=== PATIENT | male | born 1965 | race Caucasian/White ===

== ENCOUNTER 2021-02-18 14:24 | Outpatient (CLI) | payer SELFPAY ==
[2021-02-18 14:49] LABS: Mean Corpuscular HGB CONC 31.8 g/dL (32.0-36.0); Mean Corpuscular Hemoglobin 33.8 pg (27.0-33.0); Mean Corpuscular Volume 106.3 fl (81.2-95.1); Mean Platelet Volume 10.5 fl (7.4-10.4); Platelet Count 195 10x3/uL (150-450); RBC Distribution Width 13.1 % (11.5-14.5); Red Blood Cell (RBC) Count 4.14 10x6/uL (4.32-5.72); White Blood Cell (WBC) Count 9.9 10x3/uL (3.5-10.5)
[2021-02-18 14:57] LABS: Bilirubin Neg (Negative); Blood, Urine Negative (Negative); Clarity Cloudy (Clear); Glucose, Urine (Dipstick) Normal (Negative); Ketone, Urine 15 mg/dL (Negative); Leukocyte 25 (Negative); Nitrite Negative (Negative); Protein, Urine (Dipstick) 30 mg/dl (Neg-Trace); Specific Gravity, Urine 1.015 (1.002-1.036); pH, Urine 6.5 (5.0-9.0)
[2021-02-18 15:11] LABS: Anion Gap 16 mmol/L (10-20); BUN (Urea Nitrogen) 8 mg/dL (8.4-25.7); Calc. Creatinine Clearance 0 mL/min (70-130); Calcium 10.1 mg/dL (7.8-10.44); Carbon Dioxide 25 mmol/L (22-29); Chloride 103 mmol/L (98-107); Glucose 107 mg/dL (70-105); Potassium 5.3 mmol/L (3.5-5.1); Sodium 139 mmol/L (136-145)
[2021-02-18 15:27] LABS: Bacteria/HPF None Seen HPF (None Seen); RBC/HPF 0-3 HPF (0-3); Squamous Epithelial 0-3 HPF (0-3); WBC/HPF 0-3 HPF (0-3)
[2021-02-18 15:28] LABS: Mucous/LPF 2+ LPF (<2+)
[2021-02-19 01:56] LABS: SARS-CoV-2 PCR by NAA Not Detected (NotDetected)
== END 2021-02-18 14:25 | disposition home or self-care (01) ==
LOC: LABBT 14:24
PROVIDERS: ATTEND Orthopaedic Surgery
DX: Z01.818 Encounter for other preprocedural examination (principal); Z20.822 Contact with and (suspected) exposure to COVID-19; S46.812A Strain of other muscles, fascia and tendons at shoulder and upper arm level, left arm, initial encounter; M75.22 Bicipital tendinitis, left shoulder
CPT/HCPCS: 80048; 81001; 85027; 87635; 93005; 93010; U0003; U0005

== ENCOUNTER 2021-02-23 06:16 | Day surgery (SDC) | payer OTHER ==
[2021-02-22 11:30] VITALS: BMI 27.4
[2021-02-23] MEDS ORDERED: Midazolam HCl 2 mg/2 ml Vial ONE ×2 (06:38→06:40)
[2021-02-23] MEDS ORDERED: Fentanyl 100 MCG/2 ML VIAL ONE ×2 (06:38→06:40)
[2021-02-23] MEDS ORDERED: Sodium Chloride 0.9% 10 ML ONE (06:41)
[2021-02-23] MEDS ORDERED: Vancomycin 1 GM/200 ML BAG ONE (06:50)
[2021-02-23] MEDS ORDERED: PHENYLEPHRINE-NS 100 MCG/ML 10 ML SYRINGE ONE (07:18)
[2021-02-23] MEDS ORDERED: Lidocaine 1% (PF) 30 ML VIAL ONE (07:18)
[2021-02-23] MEDS ORDERED: Rocuronium Bromide 10 MG/ML (10ML VIAL) ONE (07:18)
[2021-02-23] MEDS ORDERED: PROPOFOL 200 MG/20 ML VIAL ONE (07:18)
[2021-02-23] MEDS ORDERED: Ropivacaine 0.5% HCl/PF (150 MG/30 ML VIAL) ONE (07:18)
[2021-02-23] MEDS ORDERED: Dexamethasone 20 MG/5 ML VIAL ONE (07:18)
[2021-02-23] MEDS ORDERED: Ondansetron PF 4 MG/2 ML Vial ONE (07:18)
[2021-02-23] MEDS ORDERED: Glycopyrrolate 0.2 MG/ML 5 ML SYRINGE ONE (07:18)
[2021-02-23] MEDS ORDERED: Lidocaine 1% PF 5 ML VIAL ONE (07:18)
[2021-02-23] MEDS ORDERED: Ondansetron PF 4 MG/2 ML Vial IVP PRN (08:30)
[2021-02-23] MEDS ORDERED: Promethazine HCl 25 MG/ML VIAL IM PRN (08:30)
[2021-02-23] MEDS ORDERED: Zolpidem Tartrate 5 MG TAB PO PRN (08:30)
[2021-02-23] MEDS ORDERED: Ropivacaine 0.2% 550 ML 550 ML NERVE BLCK SCH (08:30)
[2021-02-23] MEDS ORDERED: Meperidine HCl/PF 25 MG/ML VIAL ONE (10:05)
[2021-02-23] MEDS ORDERED: HYDROcodone/Acetaminophen 5/325 mg Tablet ONE (12:42)
== END 2021-02-23 13:30 | disposition home or self-care (01) ==
LOC: SDC 06:16
PROVIDERS: ATTEND Orthopaedic Surgery
PROC: 0LS40ZZ Reposition Left Upper Arm Tendon, Open Approach (ICD-10-PCS; principal; 2021-02-23)
PROC: 3E0T3BZ Introduction of Anesthetic Agent into Peripheral Nerves and Plexi, Percutaneous Approach (ICD-10-PCS; principal; 2021-02-23)
PROC: 0LQ20ZZ Repair Left Shoulder Tendon, Open Approach (ICD-10-PCS; principal; 2021-02-23)
DX: S46.012A Strain of muscle(s) and tendon(s) of the rotator cuff of left shoulder, initial encounter (principal); M75.22 Bicipital tendinitis, left shoulder; G89.18 Other acute postprocedural pain; M19.012 Primary osteoarthritis, left shoulder; F17.210 Nicotine dependence, cigarettes, uncomplicated; W19.XXXA Unspecified fall, initial encounter
CPT/HCPCS: A4306; C1713; J0690; J1100; J2001; J2175; J2250; J2405; J2704; J2795; J3010; J3370